=== PATIENT | female | born 1935 | race Caucasian/White ===

== ENCOUNTER 2017-01-07 13:04 | Outpatient (CLI) | payer MEDICARE ==
--- NOTE | 2017-01-07 14:21 | NM ---
VQ SCAN: HISTORY: Dyspnea. TECHNIQUE: A ventilation perfusion scan was performed using 8.8 mCi Xenon-133 by inhalation for the ventilation study followed by the intravenous administration of 6.2 mCi technetium-99m MAA for the perfusion sc an. FINDINGS: Homogeneous tracer distribution is seen in the lung yi on the ventilation perfusion scan without mismatched, pleural bases, wedge-shaped, segmental/subsegmental perfusion defects. There is tracer retention on the washout phase of the ventilation study on both sides consistent with COPD. IMPRESSION: Very low probability for pulmonary embolism. POS: [email or web address]
--- NOTE | 2017-01-07 14:28 | RAD ---
TWO VIEWS OF THE CHEST: COMPARISON: None. HISTORY: Dyspnea. FINDINGS: Two views of the chest show a normal-size cardiomediastinal silhouette with atherosclerotic calcific ations in the aorta. There is no evidence of consolidation, mass, or pleural effusion. Degenerativ e changes are seen in both shoulders and in the spine. Cholecystectomy clips are seen. IMPRESSION: No evidence of acute cardiopulmonary disease. POS: [email or web address]
== END 2017-01-07 13:05 | disposition home or self-care (01) ==
LOC: NM 13:04
PROVIDERS: ATTEND Internal Medicine Critical Care Medicine
DX: R06.00 Dyspnea, unspecified (principal)
CPT/HCPCS: 71020; 78582; 94010; 94727; 94729; A9540; A9558